=== PATIENT | male | born 1960 | race Caucasian/White ===

== ENCOUNTER 2016-12-14 15:19 | Inpatient (IN) ==
[2016-12-14] MEDS ORDERED: Atropine Sulfate 1% 40 DROP/2 ML BOTTLE SL PRN (16:25)
[2016-12-14] MEDS ORDERED: *HR* Morphine 2 MG/ML SYRINGE IVP PRN (16:25)
[2016-12-14] MEDS ORDERED: Acetaminophen 325 MG TABLET PO PRN (16:25)
[2016-12-14] MEDS ORDERED: *HR* LORazepam 1 MG TABLET PO PRN (16:25)
[2016-12-14] MEDS ORDERED: Acetaminophen 650 MG RECTAL SUPP RC PRN (16:25)
[2016-12-14] MEDS: Morphine Oral CONC 5 MG/0.25 ML ORAL.SYG PO PRN (17:07)
[2016-12-14] MEDS ORDERED: Morphine Oral CONC 5 MG/0.25 ML ORAL.SYG PO PRN (18:00)
[2016-12-14] MEDS ORDERED: Bisacodyl 10 MG RECTAL SUPPOSITORY RC PRN (21:00)
--- NOTE | 2016-12-16 11:40 | Discharge Summary ---
Date of Encounter: 12/16/16 Time of Encounter: 11:38 - Discharge Medications Home Medications: Lisinopril [Zestril] 40 mg PO DAILY 04/03/16 [History] Bed - Hospital [Hospital Bed] 1 each .ROUTE AD #1 each 12/01/16 [Rx] Handicap Placard 1 each .ROUTE AD #1 each 12/01/16 [Rx] Supplies [SUPPLIES] 1 each .ROUTE DAILY #1 each 12/01/16 [Rx] Chair, Shower [SHOWER CHAIR] 1 each .ROUTE DAILY #1 each 12/10/16 [Rx] Acetaminophen [Tylenol 650mg SUPP] 650 mg RC Q4H PRN 7 Days supp.rect 12/14/16 [Rx] Atropine Sulfate 2 drop SL Q1H PRN #120 mls 12/14/16 [Rx] Bisacodyl [Dulcolax] 10 mg RC DAILY PRN #7 supp.rect 12/14/16 [Rx] Haloperidol Oral Conc [Haldol] 0.5 mg PO Q4H PRN #120 mls 12/14/16 [Rx] LORazepam Oral Conc [Ativan Oral Conc] 2 mg PO Q2H PRN #120 mls 12/14/16 [Rx] Morphine Oral CONC [Roxanol] 0.5 ml PO Q1H PRN #120 ml 12/14/16 [Rx] Allergies/Adverse Reactions: 3 Allergy/AdvReac Type Severity Reaction Status Date / Time Penicillins Allergy Rash Verified 12/01/16 14:10 Date of admission: 12/14/16 15:49 Primary care physician: Curly Owen CNP Consults: 12/14/16 16:26 Consult to Palliative Care [CONS] Routine Comment: Consulting Provider: [facility] [place] Reason for Consult: End-of-life Call Completed: Yes - Patient Status Disposition: - Discharge Instructions Hospital course: Mr. Aguilar is a 56 year old male who was admitted to hospice December 14 following a brief stay in acute care [facility] for confusion and lethargy. At 11:45 PM December 14 the patient was noted to be without pulse or respirations and was pronounced . - Time Spent with Patient Total time spent providing and/or coordinating discharge services:
== END 2016-12-14 23:45 | disposition expired | DRG 683 ==
LOC: INPPIK 15:49
PROVIDERS: ADMIT Internal Medicine; ATTEND Internal Medicine